=== PATIENT | male | born 1995 | race Two or more races ===

== ENCOUNTER 2019-05-25 01:38 | Emergency (ER) | payer MEDICAID ==
[~2019-05-25] VITALS: Ht 165.1 cm; Wt 68.2 kg
--- NOTE | 2019-05-25 02:22 | NUR ---
DR YLLE AT BEDSIDE. PT REPORTS HE FEELS OK AND WANTS TO GO HOME. MD TOLD HIM HE NEEDS TO FIND A SAFE RIDE HOME. PT TO MAKE SOME PHONE CALLS. PT GIVEN SANDWICH, JUICE AND PITCHER OF WATER.
[2019-05-25 02:57] VITALS: BP 122/58
--- NOTE | 2019-05-25 02:58 | NUR ---
Pt reprots he has his keys to his home. I spoke with a friend of his "T", she reports she knows his roomate well and does not know him well and that she is unable to pick him up as she doesw not have a car. Pt reports roomate has a car but that he was drinking with him tonight so would be unable to drive. Pt gait tested and ambulating with slow but steady gait around the er. Dr. Gruber observing Pt and reprots he is suitable to take a taxi ride home. Pt contues with hr in 120's , aware.
== END 2019-05-25 03:14 | disposition home or self-care (01) ==
LOC: ER 01:39
DX: F10.129 Alcohol abuse with intoxication, unspecified (principal); Y90.9 Presence of alcohol in blood, level not specified
CPT/HCPCS: 99284